=== PATIENT | male | born 1990 | race Caucasian/White ===

== ENCOUNTER 2017-12-28 17:35 | Emergency (ER) | payer SELFPAY ==
[2017-12-28 17:39] VITALS: BP 134/81; PULSE 74; RESP 16; TEMP 37.1; O2SAT 99; BMI 22.5
[2017-12-28 19:49] VITALS: BP 0/0; PULSE 0; RESP 0; TEMP -17.7; TEMP 0; O2SAT 0
== END 2017-12-28 19:50 | disposition left against medical advice (07) ==
PROVIDERS: Emergency Provider General Practice; Family Provider Family Medicine; PCP Family Medicine
DX: Z53.21 Procedure and treatment not carried out due to patient leaving prior to being seen by health care provider (principal)

== ENCOUNTER 2021-02-09 12:51 | Emergency (ER) | payer OTHER, SELFPAY ==
[2021-02-09] VITALS (16 sets, daily range): BP systolic 119–140; BP diastolic 70–91; PULSE 60–87; RESP 16–18; TEMP 36.6–36.7; O2SAT 97–100; BMI 23.3
--- NOTE | 2021-02-09 13:48 | CT_ITS ---
PROCEDURE: CT HEAD/BRAIN WO CON CLINICAL INDICATION: HEADPAIN/DISOREINTED COMPARISON: No exams were available for comparison TECHNIQUE: Axial images obtained. All CT scans at the facility use one or more dose reduction, viz: automated exposure control, ma/kV adjustment per patient size (including targeted exams where dose is matched to indication, i.e. head), or iterative reconstruction technique. FINDINGS: No midline shift, mass effect, intracranial hemorrhage, hydrocephalus, or extra-axial fluid collection is evident. There is subtle decreased attenuation within the deep white matter of the left parietal occipital junction. This is best demonstrated 23. This is of questionable clinical significance. CT head with contrast may provide further evaluation. The calvarium has an unremarkable appearance. No mastoid effusion. No sinus air-fluid level. IMPRESSION: 1. Subtle decreased attenuation in the white matter of the left left occipital lobe of questionable clinical significance. Enhanced CT may provide further evaluation. 2. Otherwise negative. No intracranial hemorrhage or midline shift. Dictated by: Jareth Collins MD 02/09/2021 14:31 Jareth Collins MD in [facility] 02/09/2021 14:31
--- NOTE | 2021-02-09 14:09 | [facility].EDGENADL ---
ED Disposition Clinical Impression: Frequent episodic tension-type headache Disposition: Home, Self-Care Condition on Discharge: Good Instructions: DI for Headache Additional Instructions: Continue ibuprofen and caffeine for headaches. Follow-up with your primary care provider. Additional instructions for HEADACHE: See your physician as soon as possible for further evaluation. Return immediately if worsening headache, vomiting, problems with vision or speech, fever, numbness or weakness of the extremities, neck pain or stiffness. Referrals: PCP,No [Primary Care Provider] - - Critical Care Critical Care Time: No Attestation: On 02/09/21, the high probability of a clinically significant, sudden or life threatening deterioration of the following system(s) required my full and direct attention, intervention and personal management. The time I documented below is in addition to time spent performing reported procedures but includes the following listed in this critical care notation. Medical Decision Making - [place] Inquiry Pt receiving controlled substance: No Vital Signs: 02/09/21 12:52 02/09/21 13:21 02/09/21 13:29 Temperature 98.1 F Temperature Source Oral Pulse Rate 74 83 Pulse Rate [Right] 87 Respiratory Rate 18 Blood Pressure Blood Pressure [Right Arm] 133/70 Blood Pressure Mean Blood Pressure Mean [Right Arm] 91 02 Sat by Pulse Oximetry 98 97 97 02/09/21 13:30 02/09/21 13:31 02/09/21 13:45 Temperature Temperature Source Pulse Rate 72 72 Pulse Rate [Right] Respiratory Rate Blood Pressure 131/78 Blood Pressure [Right Arm] Blood Pressure Mean 95 Blood Pressure Mean [Right Arm] 02 Sat by Pulse Oximetry 98 100 02/09/21 13:59 02/09/21 14:00 02/09/21 14:01 Temperature Temperature Source Pulse Rate 60 70 Pulse Rate [Right] Respiratory Rate Blood Pressure 130/82 Blood Pressure [Right Arm] Blood Pressure Mean 98 Blood Pressure Mean [Right Arm] 02 Sat by Pulse Oximetry 97 99 02/09/21 14:23 02/09/21 14:30 02/09/21 14:45 Temperature Temperature Source Pulse Rate 70 64 73 Pulse Rate [Right] Respiratory Rate Blood Pressure 140/91 H Blood Pressure [Right Arm] Blood Pressure Mean 103 Blood Pressure Mean [Right Arm] 02 Sat by Pulse Oximetry 100 99 97 02/09/21 15:00 02/09/21 15:15 02/09/21 16:07 Temperature Temperature Source Pulse Rate 77 73 64 Pulse Rate [Right] Respiratory Rate Blood Pressure 140/82 122/70 Blood Pressure [Right Arm] Blood Pressure Mean 96 Blood Pressure Mean [Right Arm] 02 Sat by Pulse Oximetry 99 99 99 - Lab Data Lab Results 02/09/21 14:14: Urine Color Yellow, Urine Appearance Clear, Urine pH 7.5, Ur Specific [place] 1.010, Urine Protein Negative, Urine Glucose (UA) Negative, Urine Ketones Negative, Urine Blood Negative, Urine Nitrate Negative, Urine Bilirubin Negative, Urine Urobilinogen 0.2, Ur Leukocyte Esterase Negative, Urine RBC None, Urine WBC None, Ur Squamous Epith Cells Occasional, Urine Bacteria None 02/09/21 15:20: WBC 11.3 H, RBC 5.08, Hgb 15.1, Hct 44.9, MCV 88.4, MCH 29.7, MCHC 33.6, RDW 12.5, Plt Count 262, MPV 8.6, Neut % (Auto) 59.6, Lymph % (Auto) 31.1, [place] % (Auto) 5.5, Eos % (Auto) 3.2, Baso % (Auto) 0.5, Neut # (Auto) 6.8, Lymph # (Auto) 3.5, [place] # (Auto) 0.6, Eos # (Auto) 0.4, Baso # (Auto) 0.1, ESR 7 02/09/21 15:20: Sodium 142, Potassium 4.8, Chloride 104, Carbon Dioxide 30, Anion Gap 12.8, BUN 11, Creatinine 0.80, Estimated Creat Clear 161, Estimated GFR 115, Est GFR ( Amer) 139, Glucose 93, Calcium 10.4 H, Total Bilirubin 0.6, AST 32, ALT 18, Alkaline Phosphatase 75, C-Reactive Protein 1.0, Total Protein 7.8, Albumin 5.2 H, Globulin 2.6, Albumin/Globulin Ratio 2.0 H Result diagrams: 02/09/21 15:20 02/09/21 15:20 Orders (Tests/Meds): ED MEDICATIONS Discontinued Medications Generic Name Dose Route St
--- NOTE | 2021-02-09 15:15 | CT_ITS ---
PROCEDURE: CT HEAD/BRAIN W CON CLINICAL INDICATION: headache, abnormal non-con CT COMPARISON: CT CT HEAD/BRAIN WO CON from 02/09/2021 TECHNIQUE: IV Contrast: 100ML Isovue 370 Axial images obtained. All CT scans at the facility use one or more dose reduction, viz: automated exposure control, ma/kV adjustment per patient size (including targeted exams where dose is matched to indication, i.e. head), or iterative reconstruction technique. FINDINGS: No enhancing lesions are evident. Specifically, no abnormal enhancement in the left occipital lobe. No midline shift or mass effect. IMPRESSION: Negative CT head with contrast. Dictated by: Jareth Collins MD 02/09/2021 15:57 Jareth Collins MD in [facility] 02/09/2021 15:57
[2021-02-09 15:36] LABS: Appearance,Urine CLEAR (Clear); Bilirubin,Urine Negative (Negative); Blood, Urine Negative (Negative); Color,Urine YELLOW (Yellow); Glucose,Urine (UA) Negative (Negative); Ketones,Urine Negative (Negative); Leukocyte Esterase,Urine Negative (Negative); Microscopic, Urine URINE MICROSCOPIC (MICROSCOPIC); Nitrate,Urine Negative (Negative); PH,Urine 7.5 (5.0-8.5); Protein,Urine Negative (Negative); Urobilinogen,Urine 0.2 EU/dl (0.2)
[2021-02-09 15:36] LABS: Chloride 104 mmol/L (98-107); Sodium 142 mmol/L (136-145)
[2021-02-09 15:37] LABS: Potassium 4.8 mmoL/L (3.5-5.1)
[2021-02-09 15:39] LABS: Alanine Aminotransferase 18 U/L (12-78); Alkaline Phosphatase 75 U/L (38-126); Aspartate Amino Transferase 32 U/L (17-59); Bilirubin,Total 0.6 mg/dl (0.2-1.3); Blood Urea Nitrogen 11 mg/dl (9-20); Creatinine Clearance Estimated 161 mL/min (50-200); Estimated Glomerular Filt Rate 115 ml/min (>60); GFR (African American) 139 ML/MIN (>60)
[2021-02-09 15:40] LABS: Albumin Level 5.2 g/dl (3.5-5.0); Anion Gap 12.8 mEq/L (5-15); Calcium 10.4 mg/dl (8.4-10.2); Carbon Dioxide 30 mmol/L (22.0-30.0); Globulin 2.6 g/dL (1.3-3.2); Glucose 93 mg/dl (74-100); Total Protein,Serum 7.8 g/dl (6.3-8.2)
[2021-02-09 15:43] LABS: Basophils # 0.1 K/mm3 (0-0.2); Basophils % 0.5 % (0.1-2.0); Eosinophils # 0.4 K/mm3 (0.0-0.4); Eosinophils % 3.2 % (0.1-12.0); Hematocrit 44.9 % (42.0-52.0); Hemoglobin 15.1 g/dL (14.1-18.0); Lymphocytes # 3.5 K/mm3 (0.7-4.5); Lymphocytes % 31.1 % (10-50); Mean Corpuscular HGB Conc 33.6 g/dL (31.8-35.4); Mean Corpuscular Hemoglobin 29.7 pg (27.0-31.2); Mean Corpuscular Volume 88.4 fl (80-94); Mean Platelet Volume 8.6 fl (7.4-10.4); Monocytes # 0.6 K/mm3 (0.1-1.0); Monocytes % 5.5 % (1.7-9.3); Neutrophils # 6.8 K/mm3 (1.8-7.8); Neutrophils % 59.6 % (37.0-80.0); Platelet Count 262 K/mm3 (142-424); Red Blood Count 5.08 M/mm3 (4.60-6.20); Red Cell Distribution Width 12.5 % (11.5-17.5); White Blood Count 11.3 K/mm3 (4.8-10.8)
[2021-02-09 15:51] LABS: Squamous Epithelial Cell,Urine Occasional #/hpf (0-5)
[2021-02-09 15:58] LABS: Erythrocyte Sedimentation Rate 7 mm/hr (0-15)
== END 2021-02-09 17:10 | disposition home or self-care (01) ==
PROVIDERS: Emergency Provider Emergency Medicine
DX: G44.219 Episodic tension-type headache, not intractable (principal); F17.210 Nicotine dependence, cigarettes, uncomplicated; Z20.822 Contact with and (suspected) exposure to COVID-19
CPT/HCPCS: 70450; 70460; 80053; 81001; 85025; 85651; 86140; 99282; Q9967; U0003

== ENCOUNTER 2024-10-31 21:27 | Emergency (ER) | payer OTHER, SELFPAY ==
[2024-10-31 21:29] VITALS: BP 132/83; PULSE 72; RESP 16; TEMP 37.7; O2SAT 95; BMI 26.9
--- NOTE | 2024-10-31 21:46 | ED_ITS ---
Discharge Plan Disposition Patient Disposition: Home, Self-Care Prescriptions Prescriptions: No Action levofloxacin 500 MG tablet 500 mg PO DAILY Qty: 7 0RF Referrals Follow up/Referrals: Provider,Referral, MD [Primary Care Provider] - See instructions Activity Restrictions/Add. Instructions Additional Instructions/Restrictions: No evidence of an emergent medical condition patient is cleared for incarceration. Clinical Impressions Clinical Impression: Medical clearance for incarceration Print Language Print Language: Bulgarian Discharge ED Provider: Elizabeth Zambrano General Adult HPI General Chief complaint: Medical Clearance Stated complaint: medical clearence Time Seen by Provider: 10/31/24 21:42 Mode of Arrival: Ambulatory Source of Information: Patient Limitations: No Limitations Description of Symptoms (Recalled from ER Triage Doc. by RN): Medical clearance- patient states he has had 6 coors banquets. States he has no medical issues and is healthy as an ox History of Present Illness HPI narrative: 34-year-old male brought in by police for medical clearance. States that he has had a few beers tonight. He denies any complaints. Police state that they have had no issues with him they just needed him to be cleared medically. Patient has no complaints is no past medical history he has been walking normally and interacting normally with police. Related Data Previous Rx's ?Medication ?Instructions ?Recorded levofloxacin 500 mg tablet 500 mg PO DAILY #7 tabs 03/02/20 Allergies Allergy/AdvReac Type Severity Reaction Status Date / Time No Known Allergies Allergy Verified 12/28/17 18:21 [facility] Disclaimer: The information contained in this section may have been updated after the patient was seen, as this information can be updated by other users. Social History Smoking Status: Current every day smoker tobacco type: cigarettes alcohol intake: never current occupational status: employed Travel in the last 8 weeks: None Other Medical History Have you received the Flu Vaccine for this season: No Have you received the Pneumonia Vaccine: No ROS Obtained: Yes All systems reviewed & no additional complaints except as documented Physical Exam General General appearance: appears intoxicated (Appears mildly intoxicated smells of alcohol) Respiratory Respiratory exam: Present normal lung sounds bilaterally Cardiovascular Cardiovascular exam: Present regular rate Neurological Exam Neurological exam: Present alert, oriented X3, CN II-XII intact and normal gait; Absent motor sensory deficit Medical Decision Making Medical Records Screening: Per USPSTF and CDC recommendations, given the prevalence of disease in our region, it is our hospital?s policy to screen for HIV and viral Hepatitis for all patients aged 18 and over and those with ongoing risk factors. [place] Inquiry Pt receiving controlled substance: No Vital Signs: 10/31/24 21:29 Temperature 99.8 F H Temperature Source Oral Pulse Rate [Right Radial] 72 Respiratory Rate 16 Blood Pressure [Right Arm] 132/83 Blood Pressure Mean [Right Arm] 99 Blood Pressure Source [Right Arm] Automatic Cuff Blood Pressure Position [Right Arm] Supine 02 Sat by Pulse Oximetry 95 Oxygen Delivery Method Room Air Medical Decision Narrative: Well-appearing 34-year-old male awake alert oriented with normal gait very mildly intoxicated clinically no indication for any medical intervention or further evaluation. Patient cleared medically for incarceration. Critical Care Critical Care Time Critical Care Time: No
[2024-10-31 21:59] VITALS: BP 130/82; PULSE 72; RESP 16; TEMP 36.7; O2SAT 98
== END 2024-10-31 22:05 | disposition home or self-care (01) ==
PROVIDERS: Emergency Provider Student in an Organized Health Care Education/Training Program
DX: Z00.8 Encounter for other general examination (principal)
CPT/HCPCS: 99281